=== PATIENT | male | born 1995 | race Two or more races ===

== ENCOUNTER 2024-08-15 18:12 | Emergency (ER) | payer SELFPAY ==
[2024-08-15] MEDS: Ketorolac 30 MG/ML SDV IM ONE (18:28)
[2024-08-15 19:10] LABS: BILIRUBIN,URINE MODERATE (NEGATIVE); COLOR,URINE AMBER (YELLOW); GLUCOSE,URINE NEGATIVE (NEGATIVE); KETONES,URINE NEGATIVE (NEGATIVE); NITRITE,URINE NEGATIVE (NEGATIVE); OCCULT BLOOD,URINE NEGATIVE (NEGATIVE); PH,URINE 5.5 (5.0-8.0); PROTEIN,URINE 100 mg/dL (NEGATIVE)
[2024-08-15 19:11] LABS: APPEARANCE,URINE SLIGHTLY CLOUDY (CLEAR)
[2024-08-15 19:17] LABS: LEUKOCYTE ESTERASE,URINE NEGATIVE (NEGATIVE)
[2024-08-15 19:18] LABS: BACTERIA,URINE OCCASIONAL /HPF (NOT SEEN); MUCUS,URINE MANY /LPF (NOT SEEN); RBC,URINE 0-5 /HPF (NOT SEEN); SQUAMOUS EPITHELIAL CELLS,UR FEW /HPF (NOT SEEN); WBC,URINE 0-5 /HPF (NOT SEEN)
== END 2024-08-15 19:33 | disposition home or self-care (01) ==
LOC: VM.ED 18:12
DX: M54.40 Lumbago with sciatica, unspecified side (principal)
CPT/HCPCS: 81001; 96372; 99283; 99284; J1885